=== PATIENT | male | born 1930 | race Caucasian/White ===

== ENCOUNTER 2016-05-13 15:22 | Emergency (ER) | payer OTHER ==
[~2016-05-13] VITALS: Ht 170.2 cm; Wt 52.2 kg
[~2016-05-13 15:22] MED LIST: ASCO100076; ASPI81CH45 OR; LEVO50TA53; MULTTAB
[2016-05-13 15:57] LABS: Basophils # (auto) 0 uL; Basophils % (auto) 0.4 % (0.0-2.0); Eosinophils # (auto) 0.1 uL; Eosinophils % (auto) 0.9 % (0.0-7.0); Hematocrit 39.8 % (41.0-53.0); Hemoglobin 12.9 g/dL (13.5-17.5); Lymphocytes # (auto) 1.2 uL; Lymphocytes % (auto) 15.8 % (10.0-50.0); Mean Corpuscular Hemoglobin 31.4 pg (28.0-32.0); Mean Corpuscular Hgb Conc. 32.3 g/dL (32.0-36.0); Mean Corpuscular Volume 97.1 fL (80.0-100.0); Mean Platelet Volume 6.1 fL (7.4-10.4); Monocytes # (auto) 0.5 uL; Neutrophils # (auto) 5.9 uL; Neutrophils % (auto) 76.9 % (37.0-80.0); Platelet Count (auto) 367 10^3/uL (140-450); Red Cell Distribution Width 13.2 % (11.6-16.0); White Blood Cell 7.7 10^3/uL (4.4-10.8)
[2016-05-13 16:17] LABS: Albumin 3.9 g/dL (3.4-5.0); BUN/Creatinine Ratio 9.9; Calcium 8.9 mg/dL (8.5-10.1); Potassium 4.1 mmol/L (3.5-5.1)
[2016-05-13 16:20] LABS: Bilirubin, Total 0.7 mg/dL (0.2-1.0); Total Protein 7.3 g/dL (6.4-8.2)
[2016-05-13 18:10] VITALS: BP 145/83
[2016-05-13 18:31] LABS: Urine Bilirubin Negative (Negative); Urine Blood Negative /uL (Negative); Urine Color Yellow (Yellow); Urine Glucose Normal (Normal); Urine Ketone Negative (Negative); Urine Nitrite Negative (Negative); Urine RBC <1 /hpf (0 - 3); Urine Squamous Epithelial Cell FEW /hpf (<5); Urine Urobilinogen Normal (Negative); Urine pH 6.5 (5.0-8.0)
[2016-05-13] MEDS ORDERED: HYDROcodone-ACET 5/325MG TAB PO ONE (19:30)
== END 2016-05-13 20:14 | disposition home or self-care (01) ==
LOC: ER 15:29
DX: M79.1 Myalgia (principal); R07.89 Other chest pain; I11.0 Hypertensive heart disease with heart failure; I50.9 Heart failure, unspecified; J44.9 Chronic obstructive pulmonary disease, unspecified; E78.5 Hyperlipidemia, unspecified; E07.89 Other specified disorders of thyroid; Z95.1 Presence of aortocoronary bypass graft; Z98.890 Other specified postprocedural states
CPT/HCPCS: 36415; 71101; 80053; 81001; 84484; 85025; 93005

== ENCOUNTER 2016-06-25 10:33 | Inpatient (IN) | payer OTHER ==
[~2016-06-25] VITALS: Ht 170.2 cm; Wt 54.7 kg
[2016-06-25 14:01] LABS: Basophils # (auto) 0.1 uL; Basophils % (auto) 0.7 % (0.0-2.0); Eosinophils # (auto) 0.1 uL; Eosinophils % (auto) 0.8 % (0.0-7.0); Hematocrit 40.2 % (41.0-53.0); Hemoglobin 13.3 g/dL (13.5-17.5); Lymphocytes # (auto) 1.3 uL; Lymphocytes % (auto) 13.7 % (10.0-50.0); Mean Corpuscular Hemoglobin 32.2 pg (28.0-32.0); Mean Corpuscular Hgb Conc. 33.1 g/dL (32.0-36.0); Mean Corpuscular Volume 97.4 fL (80.0-100.0); Mean Platelet Volume 6.4 fL (7.4-10.4); Monocytes # (auto) 0.5 uL; Monocytes % (auto) 5.7 % (0.0-12.0); Neutrophils # (auto) 7.3 uL; Neutrophils % (auto) 79.1 % (37.0-80.0); Platelet Count (auto) 411 10^3/uL (140-450); Red Cell Distribution Width 12.6 % (11.6-16.0); White Blood Cell 9.2 10^3/uL (4.4-10.8)
[2016-06-25 14:20] LABS: INR 0.97 (0.9-1.15); Partial Thromboplastin Time 24.3 sec (22.64-33.71); Prothrombin Time 10.5 sec (9.37-12.3)
[2016-06-25 14:37] LABS: Albumin 3.8 g/dL (3.4-5.0); Alkaline Phosphatase 69 U/L (45-117); Anion Gap 12 (5-15); Aspartate Aminotransferase 11 U/L (15-37); Bilirubin, Total 0.8 mg/dL (0.2-1.0); Blood Urea Nitrogen 6 mg/dL (7-18); Carbon Dioxide 28 mmol/L (21-32); Chloride 102 mmol/L (98-107); GFR African American 109 mL/min; GFR Non-African American 90 mL/min; Glucose 119 mg/dL (74-106); Magnesium 2.7 mg/dL (1.6-2.6); Potassium 4.2 mmol/L (3.5-5.1); Sodium 142 mmol/L (136-145); Total Protein 7.2 g/dL (6.4-8.2)
[2016-06-25 16:18] LABS: B-Type Natriuretic Peptide 88.1 pg/mL (0-100); Temperature: 22.5 C (20.0-25.0)
[2016-06-25 18:09] LABS: Urine RBC None Seen /hpf (0 - 3)
[2016-06-25 18:36] LABS: Urine Bilirubin Negative (Negative); Urine Blood Negative /uL (Negative); Urine Color Yellow (Yellow); Urine Glucose Normal (Normal); Urine Ketone Negative (Negative); Urine Nitrite Negative (Negative); Urine Squamous Epithelial Cell FEW /hpf (<5); Urine Urobilinogen Normal (Negative)
[2016-06-25] MEDS ORDERED: ACETAMINOPHEN 325 MG TAB PO PRN (22:30)
[2016-06-25] MEDS ORDERED: TEMAZEPAM 15 MG CAP PO PRN (22:30)
[2016-06-25] MEDS ORDERED: ONDANSETRON HCL 4 MG/2 ML VIAL IV PRN (22:30)
[2016-06-25 23:01] VITALS: BP 114/76
[2016-06-26] MEDS: MORPHINE SULF INJ 2 MG/ML SYRINGE 1ML IV PRN (00:02)
[2016-06-26 04:41] VITALS: BP 102/60
[2016-06-26] MEDS: LEVOTHYROXINE SODIUM 25 MCG TAB PO SCH (06:15)
[2016-06-26 08:00] VITALS: BP 110/71
[2016-06-26 09:00] VITALS: BP 110/71
[2016-06-26] MEDS: FAMOTIDINE 20 MG TAB PO SCH ×2 (09:34→21:40)
[2016-06-26] MEDS: ASPirin 81 mg TAB PO SCH (09:34)
[2016-06-26] MEDS: ASCORBIC ACID 500 MG TAB PO SCH ×2 (09:35→21:39)
[2016-06-26] MEDS: ENOXAPARIN SOD 40 MG/0.4 ML SYRINGE SC SCH (09:39)
[2016-06-26] MEDS ORDERED: ENOXAPARIN SOD 30 MG/0.3 ML SYRINGE SC SCH ×2 (10:00)
[2016-06-26] MEDS ORDERED: ENOXAPARIN SOD 40 MG/0.4 ML SYRINGE SC SCH (10:00)
[2016-06-26 13:00] VITALS: BP 120/57
[2016-06-26 17:00] VITALS: BP 100/58
[2016-06-26 20:00] VITALS: BP 106/65
[2016-06-27 04:50] VITALS: BP 108/61
[2016-06-27] MEDS: MORPHINE SULF INJ 2 MG/ML SYRINGE 1ML IV PRN (05:26)
[2016-06-27] MEDS: LEVOTHYROXINE SODIUM 25 MCG TAB PO SCH (06:08)
[2016-06-27 06:15] LABS: Basophils # (auto) 0 uL; Basophils % (auto) 0.4 % (0.0-2.0); Eosinophils # (auto) 0.2 uL; Eosinophils % (auto) 2.1 % (0.0-7.0); Hematocrit 40.8 % (41.0-53.0); Hemoglobin 13.2 g/dL (13.5-17.5); Lymphocytes # (auto) 1.6 uL; Lymphocytes % (auto) 22.3 % (10.0-50.0); Mean Corpuscular Hemoglobin 31.6 pg (28.0-32.0); Mean Corpuscular Hgb Conc. 32.3 g/dL (32.0-36.0); Mean Corpuscular Volume 98.1 fL (80.0-100.0); Mean Platelet Volume 6.7 fL (7.4-10.4); Monocytes # (auto) 0.6 uL; Monocytes % (auto) 8.6 % (0.0-12.0); Neutrophils # (auto) 4.9 uL; Neutrophils % (auto) 66.6 % (37.0-80.0); Platelet Count (auto) 349 10^3/uL (140-450); Red Cell Distribution Width 12.8 % (11.6-16.0); White Blood Cell 7.4 10^3/uL (4.4-10.8)
[2016-06-27 06:51] LABS: BUN/Creatinine Ratio 14.5; Calcium 8.9 mg/dL (8.5-10.1); Magnesium 2.5 mg/dL (1.6-2.6); Potassium 5.2 mmol/L (3.5-5.1)
[2016-06-27] MEDS: HYDROcodone-ACET 5/325MG TAB PO PRN (08:45)
[2016-06-27 09:00] VITALS: BP 123/62
[2016-06-27] MEDS: ASPirin 81 mg TAB PO SCH (09:46)
[2016-06-27] MEDS: FAMOTIDINE 20 MG TAB PO SCH ×2 (09:46→21:30)
[2016-06-27] MEDS: ASCORBIC ACID 500 MG TAB PO SCH ×2 (09:46→21:30)
[2016-06-27] MEDS: ENOXAPARIN SOD 40 MG/0.4 ML SYRINGE SC SCH (10:00)
[2016-06-27 13:00] VITALS: BP 100/68
[2016-06-27 17:00] VITALS: BP 99/55
[2016-06-27 22:00] VITALS: BP 131/60
[2016-06-28 05:00] VITALS: BP 98/59
[2016-06-28] MEDS: HYDROcodone-ACET 5/325MG TAB PO PRN (05:38)
[2016-06-28] MEDS: LEVOTHYROXINE SODIUM 25 MCG TAB PO SCH (05:39)
[2016-06-28 09:00] VITALS: BP 100/46
[2016-06-28] MEDS: ENOXAPARIN SOD 40 MG/0.4 ML SYRINGE SC SCH (10:00)
[2016-06-28] MEDS: ASCORBIC ACID 500 MG TAB PO SCH ×2 (10:14→22:26)
[2016-06-28] MEDS: ASPirin 81 mg TAB PO SCH (10:14)
[2016-06-28] MEDS: FAMOTIDINE 20 MG TAB PO SCH (10:14)
[2016-06-28 13:00] VITALS: BP 102/62
[2016-06-28 16:52] VITALS: BP 103/60
[2016-06-28 23:53] VITALS: BP 106/64
[2016-06-29 05:55] VITALS: BP 110/55
[2016-06-29] MEDS: LEVOTHYROXINE SODIUM 25 MCG TAB PO SCH (06:28)
[2016-06-29 09:00] VITALS: BP 107/57
[2016-06-29] MEDS: ENOXAPARIN SOD 40 MG/0.4 ML SYRINGE SC SCH (10:00)
[2016-06-29] MEDS: ASCORBIC ACID 500 MG TAB PO SCH ×2 (10:25→21:11)
[2016-06-29] MEDS: ASPirin 81 mg TAB PO SCH (10:25)
[2016-06-29] MEDS: FAMOTIDINE 20 MG TAB PO SCH (10:26)
[2016-06-29 13:00] VITALS: BP 115/83
[2016-06-29] MEDS: HYDROcodone-ACET 5/325MG TAB PO PRN (13:10)
[2016-06-29 17:00] VITALS: BP 116/59
[2016-06-29 23:06] VITALS: BP 114/50
[2016-06-30 05:12] VITALS: BP 104/55
[2016-06-30] MEDS: LEVOTHYROXINE SODIUM 25 MCG TAB PO SCH (06:14)
[2016-06-30 09:00] VITALS: BP 113/46
[2016-06-30] MEDS: ENOXAPARIN SOD 40 MG/0.4 ML SYRINGE SC SCH (10:00)
[2016-06-30] MEDS: ASPirin 81 mg TAB PO SCH (10:07)
[2016-06-30] MEDS: ASCORBIC ACID 500 MG TAB PO SCH (10:07)
[2016-06-30] MEDS: FAMOTIDINE 20 MG TAB PO SCH (10:07)
[2016-06-30 13:00] VITALS: BP 116/65
[2016-06-30 16:40] VITALS: BP 116/63
[2016-06-30 16:50] VITALS: BP 116/63
== END 2016-06-30 18:30 | disposition left against medical advice (07) | DRG 552 ==
LOC: ER 10:33 → EDBD 10:33 → WEST WING 10:34
PROVIDERS: ADMIT Nurse Practitioner; ATTEND Internal Medicine
DX: M54.31 Sciatica, right side (principal); E44.1 Mild protein-calorie malnutrition; R64 Cachexia; Z68.1 Body mass index [BMI] 19.9 or less, adult; M54.5 Low back pain; Z66 Do not resuscitate; G89.29 Other chronic pain; D64.9 Anemia, unspecified; E78.5 Hyperlipidemia, unspecified; I11.0 Hypertensive heart disease with heart failure; R26.81 Unsteadiness on feet; I25.10 Atherosclerotic heart disease of native coronary artery without angina pectoris; I50.9 Heart failure, unspecified; E03.9 Hypothyroidism, unspecified; E11.9 Type 2 diabetes mellitus without complications; I70.0 Atherosclerosis of aorta; R94.6 Abnormal results of thyroid function studies; J44.9 Chronic obstructive pulmonary disease, unspecified; Z82.49 Family history of ischemic heart disease and other diseases of the circulatory system; Z95.1 Presence of aortocoronary bypass graft; Z98.890 Other specified postprocedural states
CPT/HCPCS: 36415; 71010; 72131; 80048; 80053; 80061; 81001; 83036; 83735; 83880; 84132; 84443; 84484; 85025; 85610; 85730; 93005; 94761; J2405

== ENCOUNTER → 2016-07-01 | Outpatient (CLI) | payer OTHER ==
[2016-07-01 11:41] LABS: Basophils # (auto) 0 uL; Basophils % (auto) 0.3 % (0.0-2.0); Eosinophils # (auto) 0.1 uL; Hematocrit 39.8 % (41.0-53.0); Hemoglobin 13.1 g/dL (13.5-17.5); Lymphocytes # (auto) 1.1 uL; Lymphocytes % (auto) 16.1 % (10.0-50.0); Mean Corpuscular Hemoglobin 31.9 pg (28.0-32.0); Mean Corpuscular Hgb Conc. 32.9 g/dL (32.0-36.0); Mean Platelet Volume 6.7 fL (7.4-10.4); Monocytes # (auto) 0.4 uL; Monocytes % (auto) 5.9 % (0.0-12.0); Neutrophils # (auto) 5.1 uL; Neutrophils % (auto) 76.7 % (37.0-80.0); Platelet Count (auto) 375 10^3/uL (140-450); Red Cell Distribution Width 12.7 % (11.6-16.0); White Blood Cell 6.7 10^3/uL (4.4-10.8)
[2016-07-01 12:02] LABS: Albumin 3.8 g/dL (3.4-5.0); BUN/Creatinine Ratio 19.2; Bilirubin, Total 0.7 mg/dL (0.2-1.0); Calcium 9.3 mg/dL (8.5-10.1); Potassium 4.6 mmol/L (3.5-5.1); Total Protein 7.2 g/dL (6.4-8.2)
[2016-07-01 12:07] LABS: Urine Bilirubin Negative (Negative); Urine Blood Negative /uL (Negative); Urine Color Yellow (Yellow); Urine Glucose Normal (Normal); Urine Ketone Negative (Negative); Urine Nitrite Negative (Negative); Urine RBC <1 /hpf (0 - 3); Urine Squamous Epithelial Cell FEW /hpf (<5); Urine Urobilinogen Normal (Negative); Urine pH 5.5 (5.0-8.0)
== END | disposition home or self-care (01) ==
LOC: LAB 11:06
PROVIDERS: ATTEND Internal Medicine
DX: Z00.00 Encounter for general adult medical examination without abnormal findings (principal); I10 Essential (primary) hypertension; E78.2 Mixed hyperlipidemia; E11.9 Type 2 diabetes mellitus without complications; E55.9 Vitamin D deficiency, unspecified
CPT/HCPCS: 36415; 80053; 80061; 81001; 82043; 82150; 82306; 83036; 83690; 84443; 85025

== ENCOUNTER → 2016-12-17 | Outpatient (CLI) | payer OTHER ==
[2016-12-17 09:26] LABS: Basophils # (auto) 0 uL; Basophils % (auto) 0.5 % (0.0-2.0); Eosinophils # (auto) 0.2 uL; Hemoglobin 13.4 g/dL (13.5-17.5); Lymphocytes # (auto) 1.4 uL; Lymphocytes % (auto) 18.9 % (10.0-50.0); Mean Corpuscular Hemoglobin 32.3 pg (28.0-32.0); Mean Corpuscular Hgb Conc. 33.5 g/dL (32.0-36.0); Mean Corpuscular Volume 96.5 fL (80.0-100.0); Mean Platelet Volume 6.5 fL (6.9-10.8); Monocytes # (auto) 0.6 uL; Monocytes % (auto) 8.3 % (0.0-12.0); Neutrophils # (auto) 5.3 uL; Neutrophils % (auto) 69.3 % (37.0-80.0); Platelet Count (auto) 290 10^3/uL (140-450); Red Cell Distribution Width 13.1 % (11.8-14.3); White Blood Cell 7.6 10^3/uL (4.4-10.8)
[2016-12-17 09:42] LABS: Urine Bilirubin Negative (Negative); Urine Blood Negative /uL (Negative); Urine Color Yellow (Yellow); Urine Glucose Normal (Normal); Urine Ketone Negative (Negative); Urine Mucus FEW (None Seen); Urine Nitrite Negative (Negative); Urine RBC <1 /hpf (0 - 3); Urine Squamous Epithelial Cell FEW /hpf (<5); Urine Urobilinogen Normal (Negative); Urine pH 5.5 (5.0-8.0)
[2016-12-17 09:48] LABS: Albumin 3.9 g/dL (3.4-5.0); BUN/Creatinine Ratio 13.9; Bilirubin, Total 0.9 mg/dL (0.2-1.0); Calcium 8.6 mg/dL (8.5-10.1); Potassium 4.7 mmol/L (3.5-5.1); Total Protein 7.5 g/dL (6.4-8.2)
== END | disposition home or self-care (01) ==
LOC: LAB 08:57
PROVIDERS: ATTEND Internal Medicine
DX: E11.9 Type 2 diabetes mellitus without complications (principal)
CPT/HCPCS: 36415; 80053; 81001; 83036; 84443; 85025

== ENCOUNTER 2017-02-27 14:00 | Emergency (ER) | payer OTHER ==
[~2017-02-27] VITALS: Ht 170.2 cm; Wt 47.6 kg
[2017-02-27 16:30] VITALS: BP 121/71
== END 2017-02-27 18:27 | disposition home or self-care (01) ==
LOC: ER 14:00 → EDBD 14:00 → EDUNIT# 14:00 → ER 18:27
DX: S82.302A Unspecified fracture of lower end of left tibia, initial encounter for closed fracture (principal); S70.02XA Contusion of left hip, initial encounter; I11.0 Hypertensive heart disease with heart failure; I50.9 Heart failure, unspecified; E07.89 Other specified disorders of thyroid; J44.9 Chronic obstructive pulmonary disease, unspecified; Z86.73 Personal history of transient ischemic attack (TIA), and cerebral infarction without residual deficits; Z95.1 Presence of aortocoronary bypass graft; Z90.89 Acquired absence of other organs; Z98.61 Coronary angioplasty status; W01.0XXA Fall on same level from slipping, tripping and stumbling without subsequent striking against object, initial encounter; Y93.89 Activity, other specified; Y99.8 Other external cause status; Y92.89 Other specified places as the place of occurrence of the external cause
CPT/HCPCS: 29515; 70450; 73502; 73610

== ENCOUNTER → 2018-01-13 | Outpatient (CLI) | payer OTHER ==
[~2018-01-13] MED LIST changes: -ASCO100076; -LEVO50TA53; +LEVO50TA53 PO; -MULTTAB
[2018-01-13 12:42] LABS: Basophils # (auto) 0 uL; Basophils % (auto) 0.4 % (0.0-2.0); Eosinophils # (auto) 0.1 uL; Eosinophils % (auto) 1.5 % (0.0-7.0); Hematocrit 41.1 % (41.0-53.0); Hemoglobin 13.5 g/dL (13.5-17.5); Lymphocytes # (auto) 1.2 uL; Lymphocytes % (auto) 19.9 % (10.0-50.0); Mean Corpuscular Hemoglobin 31.7 pg (28.0-32.0); Mean Corpuscular Hgb Conc. 32.9 g/dL (32.0-36.0); Mean Corpuscular Volume 96.2 fL (80.0-100.0); Monocytes # (auto) 0.4 uL; Monocytes % (auto) 7.4 % (0.0-12.0); Neutrophils # (auto) 4.3 uL; Neutrophils % (auto) 70.8 % (37.0-80.0); Platelet Count (auto) 280 10^3/uL (140-450); Red Blood Cells 4.27 10^6/uL (4.5-5.90); Red Cell Distribution Width 13.6 % (11.8-14.3)
[2018-01-13 12:55] LABS: Potassium 5.1 mmol/L (3.5-5.1)
[2018-01-13 12:57] LABS: BUN/Creatinine Ratio 12.2; Bilirubin, Total 1.2 mg/dL (0.2-1.0); Total Protein 7.6 g/dL (6.4-8.2)
== END | disposition home or self-care (01) ==
LOC: LAB 12:07
PROVIDERS: ATTEND Internal Medicine
DX: E11.22 Type 2 diabetes mellitus with diabetic chronic kidney disease (principal); I12.9 Hypertensive chronic kidney disease with stage 1 through stage 4 chronic kidney disease, or unspecified chronic kidney disease; N18.2 Chronic kidney disease, stage 2 (mild)
CPT/HCPCS: 36415; 80053; 83036; 85025; 85652

== ENCOUNTER 2018-03-21 20:31 | Emergency (ER) | payer OTHER ==
[~2018-03-21] VITALS: Ht 182.9 cm; Wt 63.5 kg
[2018-03-21] MEDS ORDERED: SODIUM CHLORIDE 0.9% 500 ML IVB ONE (20:45)
[2018-03-21] MEDS ORDERED: ONDANSETRON HCL 4 MG/2 ML VIAL IV ONE (21:00)
[2018-03-21] MEDS ORDERED: PANTOPRAZOLE 40 MG/10 ML VIAL IV ONE (21:00)
[2018-03-21] MEDS ORDERED: MIDAZOLAM HCL 5 MG/ML-1ML VIAL ONE (21:26)
[2018-03-21] MEDS ORDERED: LIDOCAINE HCL 100 MG/5ML (2%) SYRG INJ IV ONE ×2 (21:27→21:45)
[2018-03-21] MEDS ORDERED: SUCCINYLCHOLINE CHLORIDE 20 MG/ML 10ML VIAL IV ONE ×2 (21:27→21:45)
[2018-03-21] MEDS ORDERED: LEVETIRACETAM INJ 1,000 MG in D5W 5% 100 ML IV ONE (21:30)
[2018-03-21] MEDS ORDERED: PROPOFOL 100 ML IV SCH (21:35)
[2018-03-21] MEDS ORDERED: PROPOFOL 100 ML IV ONE (21:38)
[2018-03-21] MEDS ORDERED: MIDAZOLAM HCL 5 MG/ML-1ML VIAL IV ONE (21:45)
[2018-03-21] MEDS ORDERED: LEVETIRACETAM 500 MG/5ML INJ IV ONE (21:55)
[2018-03-21 22:27] LABS: Basophils # (auto) 0.1 uL; Basophils % (auto) 0.5 % (0.0-2.0); Eosinophils # (auto) 0.1 uL; Eosinophils % (auto) 0.4 % (0.0-7.0); Hematocrit 42.3 % (41.0-53.0); Lymphocytes # (auto) 0.6 uL; Lymphocytes % (auto) 4.6 % (10.0-50.0); Mean Corpuscular Hemoglobin 32.4 pg (28.0-32.0); Mean Corpuscular Hgb Conc. 33.2 g/dL (32.0-36.0); Mean Corpuscular Volume 97.7 fL (80.0-100.0); Monocytes # (auto) 0.7 uL; Monocytes % (auto) 4.9 % (0.0-12.0); Neutrophils # (auto) 12.5 uL; Neutrophils % (auto) 89.6 % (37.0-80.0); Platelet Count (auto) 232 10^3/uL (140-450); Red Blood Cells 4.33 10^6/uL (4.5-5.90); Red Cell Distribution Width 13.8 % (11.8-14.3)
[2018-03-21 22:39] LABS: INR 0.94 (0.9-1.15); Partial Thromboplastin Time 27.5 sec (23.78-33.04); Prothrombin Time 10.1 sec (9.27-12.13)
[2018-03-21 22:40] LABS: Alanine Aminotransferase 18 U/L (16-61); Albumin 4.2 g/dL (3.4-5.0); Anion Gap 12 (5-15); Aspartate Aminotransferase 24 U/L (15-37); Blood Urea Nitrogen 5 mg/dL (7-18); Calcium 7.6 mg/dL (8.5-10.1); Carbon Dioxide 25 mmol/L (21-32); Chloride 97 mmol/L (98-107); GFR African American 135 mL/min; GFR Non-African American 112 mL/min; Glucose 117 mg/dL (74-106); Magnesium 2.3 mg/dL (1.6-2.6); Sodium 134 mmol/L (136-145)
[2018-03-21 22:43] LABS: Alkaline Phosphatase 64 U/L (45-117); Bilirubin, Total 1.2 mg/dL (0.2-1.0); Total Protein 7.8 g/dL (6.4-8.2)
[2018-03-21 22:59] VITALS: BP 154/86
== END 2018-03-22 01:15 | disposition short-term general hospital (02) ==
LOC: EDBD 20:31 → ER 20:42
DX: S06.309A Unspecified focal traumatic brain injury with loss of consciousness of unspecified duration, initial encounter (principal); R41.82 Altered mental status, unspecified; I11.0 Hypertensive heart disease with heart failure; I50.9 Heart failure, unspecified; J44.9 Chronic obstructive pulmonary disease, unspecified; E78.5 Hyperlipidemia, unspecified; E07.9 Disorder of thyroid, unspecified; Z95.1 Presence of aortocoronary bypass graft; W22.09XA Striking against other stationary object, initial encounter; Y93.89 Activity, other specified; Y92.098 Other place in other non-institutional residence as the place of occurrence of the external cause; Y99.8 Other external cause status
CPT/HCPCS: 31500; 36415; 36600; 51702; 70450; 71045; 80053; 80320; 82805; 82962; 83735; 85025; 85610; 85730; 92950; 93005; 96365; 96375; 99291; C9113; J0330; J1953; J2250; J2405; J2704; J7030; 94002; 96368; J7060